=== PATIENT | female | born 1955 | race Caucasian/White ===

== ENCOUNTER 2021-07-23 06:01 | Day surgery (SDC) | payer OTHER ==
[2021-07-18 15:46] LABS: Absolute Lymphocytes (CBC) 2.4 K/uL (0.7-4.9); Hematocrit 40.2 % (36.0-45.0); MPV 7.6 fL (7.6-11.3); RBC Red Blood Cell Count 4.21 M/uL (3.86-4.86)
[2021-07-18 15:55] LABS: Urine Appearance CLEAR (Clear); Urine Bilirubin NEGATIVE (Negative); Urine Blood NEGATIVE (Negative); Urine Color YELLOW (Yellow); Urine Glucose NEGATIVE (Negative); Urine Protein NEGATIVE (Negative); Urine pH 7.5 (5.0-7.0)
--- NOTE | 2021-07-18 15:55 | RAD REPORT ---
EXAM DESCRIPTION: RAD - Chest Pa And Lat (2 Views) - 07/18/2021 3:41 pm CLINICAL HISTORY: pre op COMPARISON: No comparisons FINDINGS: Lines: None. Lungs: No evidence of edema or pneumonia. Pleural: No significant pleural effusions or pneumothorax. Cardiac: The heart size is within normal limits. Bones: No acute fractures. Other: IMPRESSION: No acute cardiopulmonary disease.
[2021-07-18 15:57] LABS: Protime INR 0.97; Urine Microscopic Reflex NO UMIC
[2021-07-18 16:02] LABS: Potassium 3.8 mmol/L (3.5-5.1)
--- NOTE | 2021-07-19 07:45 | EKG ---
Test Date: 2021-07-18 Test Time: 14:17:28 Records Coordinator: ESTELA MEASUREMENT RESULTS: Intervals: Rate: 64 UT: 166 QRSD: 72 QT: 400 QTc: 412 [place]: P: 78 UT: 166 QRS: 64 T: 66 INTERPRETIVE STATEMENTS: Normal sinus rhythm Normal ECG No previous ECG available for comparison Electronically Signed On 07-19-21 07:44:12 CDT by Hua Mancuso
[2021-07-23 07:26] VITALS: TEMP 97.8
[2021-07-23] MEDS ORDERED: Ringers Lactate 1,000 ML IV ONE (07:49)
[2021-07-23] MEDS ORDERED: CEFAZOLIN/NS 1gm 1 GM/50 ML BAG ONE (07:50)
[2021-07-23] MEDS ORDERED: propofoL 200 MG/20 ML VIAL IV ONE ×2 (08:00→09:14)
[2021-07-23] MEDS ORDERED: MIDAZOLAM HCL 2 MG/2 ML INJ ONE (08:01)
[2021-07-23] MEDS ORDERED: dexAMETHasone 10 MG/ML VIAL ONE (08:01)
[2021-07-23] MEDS ORDERED: FENTANYL CITR 100 MCG/2 ML ONE (08:01)
[2021-07-23] MEDS ORDERED: LIDOCAINE 2% MPF 5 ML VIAL ONE (08:03)
[2021-07-23] MEDS ORDERED: KETOROLAC 30 MG/ML INJ ONE (08:03)
[2021-07-23] MEDS ORDERED: ONDANSETRON 4 MG/2 ML VIAL ONE (08:03)
[2021-07-23] MEDS ORDERED: LIDOCAINE 1% MPF 30 ML VIAL ONE (08:17)
[2021-07-23] MEDS ORDERED: dexAMETHasone 4 MG/ML VIAL ONE (08:17)
[2021-07-23 09:28] VITALS: BP 116/77; O2SAT 97
--- NOTE | 2021-07-23 12:15 | PREOPHP ---
Date of Admission: 07/23/2021 History Of Present Illness: The patient presented to my office with a chief complaint of a painful l eft big toe joint. The patient has had this pain for many months, worse with activity, relieved by r est, throbbing in nature, moderate in severity. She has tried different shoe gear which has helped. The patient still has pain with every day function and is requesting surgical management. Medical History: Includes hypertension and high cholesterol. Current Medications: Alendronate 10 mg, lisinopril 10 mg, hydroxyzine pamoate 25 mg, and lovastatin 10 mg. Allergies: NKDA. Surgical History: Unremarkable. Family History: Includes cancer, elevated cholesterol, diabetes and hypertension in her parents. Physical Examination: Vital Signs: The patient's weight is 125 pounds, height is 5 feet 2 inches. General Appearance: The patient is healthy, well developed, well nourished, well oriented x3. Vascular Evaluation: Dorsalis pedis and posterior tibial pulses are 4/4 bilaterally. Capillary refi ll time is less than 3 seconds to all toes. Temperature gradient is within normal limits. There is no claudication complaint, varicosities, or signs of DVT bilaterally. Foot Assessment: Reveals a semi-flexible cavus foot type bilaterally. Subtalar joint shows increase d varus bilaterally. There is forefoot supinatus and adductus bilaterally. There is a dorsal medial eminence of the first metatarsal head with range of motion decreased to 30 degrees bilateral. Hallu x rigidus is noted bilaterally with a mild valgus position. Equinus is noted to be -10 degrees bilat erally per goniometer management. The remainder of the digits are within normal limits. Musculoskeletal: Muscle knee and ankle assessment is within normal limits. There is no tenderness o n palpation of the plantar fascia. There are no subcutaneous soft tissue masses noted bilaterally. Skin Evaluation: Reveals no rash, ulcer, tumor, or contracture. Neurologic Evaluation: Reveals deep tendon reflexes for the patellar and Achilles to be 5 of 5 bilat erally. Vibratory and sharp dull sensation within normal limits. X-ray evaluation reveals spurring of the first metatarsophalangeal joint seen on the lateral view, th ere is decreased joint space noted on the AP view and a fragmentation medially at the base of the pro ximal phalanx. There is significant dorsal spurring and on the lateral view on the head of the first metatarsal and base of the proximal phalanx of the hallux. Diagnosis: Hallux rigidus, left foot. Pain in the left foot. Recommended: Treatment is for a cheilectomy of the first MPJ, left foot. The potential need for fut ure surgery was discussed with the patient including joint and plantar fusion due to the nature of th e pathology and its progressive characteristics. The patient is made aware that she would require ap proximately 6-8 weeks recovery but possible prolonged tenderness due to stiffness of the joint curren tly. The patient has been made aware of the current COVID risks, need for vaccination, and increased risk of blood clots and complications if one gets COVID, so she is recommended to follow CDC guideli sharonda. Orthotics were discussed as needed postoperatively to maintain correction. The patient underst ands risks, benefits, and alternatives of the above-mentioned procedure including, but not limited to the risk of pain, swelling, numbness, stiffness, infection, nonhealing of skin or bone, and recurren ce of the problem with the need for future surgery. Due to lack of response to conservative treatmen t, the patient requests surgical management. Lab workup has been performed and the patient has been instructed on use of cold therapy unit. She has been given a prescription for pain medications posto peratively as well as interspersing ibuprofen for pain-relief. The patient was also dispensed the Se al-Tight to keep the bandages dry after surgery. The patient is scheduled for surgery on July 23, 2021. Medical H and P will be completed by Anesthesi suzanne ARTIS/EDELMIRA Voice ID: [id number]
--- NOTE | 2021-07-23 19:05 | OP ---
Date of Procedure: 07/23/2021 Surgeon: Raad Brush DPM Preoperative Diagnosis: Hallux rigidus, first metatarsophalangeal joint, left foot. Postoperative Diagnosis: Hallux rigidus, first metatarsophalangeal joint, left foot. Procedure: Cheilectomy, first metatarsophalangeal joint, left foot. Anesthesia: Local with MAC. Procedure In Detail: The patient was brought into the operating room, placed on the operating table in supine position. Once adequate IV sedation was obtained, the patient was injected with a total of 10 cc of 0.5% Marcaine plain. The patient was prepped and draped in usual sterile manner. Left ext remity was elevated to 60 degrees and Esmarch bandage was applied to exsanguinate the blood supply. Pneumatic ankle tourniquet was elevated to 250 mmHg and the Esmarch was removed. Attention was then directed to the first MPJ of the left foot where a dorsal linear incision was made 5 cm in length. T he incision was deepened via sharp and blunt dissection and carried through down the capsule to the b one. The capsular tissue was freed medially and laterally exposing severe degenerative bone on the b ase of the proximal phalanx medially. The degenerative bone was approached with a rongeur. The base of the proximal phalanx medially and dorsally was resected to smooth intact surface as there was a p rior ossicle or fracture fragment noted on x-ray preop. The head of the first metatarsal was then in spected and found to be 30% degenerated medially and plantarly and a little dorsally. The medial asp ect of the first metatarsal head was resected approximately 2 mm to allow better articulation of the newly shaped base of the proximal phalanx on the metatarsal head. The dorsal surface of the metatars al head was resected utilizing an oscillating saw to create a level surface with the base of the prox imal phalanx dorsally with the foot held in simulated weightbearing. All edges were smoothed utilizi ng a rotary bur. The articular cartilage was fenestrated utilizing a 0.045 K-wire on the medial plan tar aspect. The area was flushed with copious amounts of sterile saline. Hypertrophied capsule tiss ue was resected and the capsular tissue was closed utilizing 2-0 Vicryl suture. With simulated weigh tbearing, the foot was seen to obtain approximately 70 degrees of range of motion similar to the seco nd toe. The area was then flushed with copious amounts sterile saline again and skin was then closed with 4-0 Prolene horizontal mattress suture. The area was dressed with Adaptic, dry sterile gauze, dry sterile Evon, Kerlix, and cold therapy unit, and Praveen bandage. Pneumatic ankle tourniquet was de flated and capillary return was seen to be instantaneous to all digits. The patient was sent to same -day surgery for recovery. STEFF/EDELMIRA Voice ID: [id number] Report ID: [id number]
--- NOTE | 2021-07-23 19:12 | DS ---
Date of Discharge: 07/23/2021 Date Of Surgery: 07/23/2021. Surgeon: Raad Brush DPM. Preoperative Diagnosis: Hallux rigidus, first metatarsophalangeal joint, left foot. Postoperative Diagnosis: Hallux rigidus, first metatarsophalangeal joint, left foot. Procedure: Cheilectomy, first metatarsophalangeal joint, left foot. Hospital Course: The patient tolerated the procedure and anesthesia well, was sent to same-day surge ry in satisfactory condition. The patient may be discharged to home per anesthesia guidelines and wi ll be followed up in the office in 1 week on July 30 at 2:30 p.m. The patient has been given a postop shoe and cold therapy unit has been put in place and is functioning. STEFF/EDELMIRA Voice ID: [id number] Report ID: [id number]
== END 2021-07-23 10:25 | disposition home or self-care (01) ==
LOC: OR 06:01
PROVIDERS: ATTEND Podiatrist
PROC: 0QBP0ZZ Excision of Left Metatarsal, Open Approach (ICD-10-PCS; principal; 2021-07-23 07:30)
DX: M20.22 Hallux rigidus, left foot (principal); Z20.822 Contact with and (suspected) exposure to COVID-19
CPT/HCPCS: 93005; 85025; 80048; 36415; 85610; 88304; 88311; 85730; 81003; 71046; 28289; U0003; J2704 ×2; J2250; J3010; J1100; J0690; J7120; J2405; 88305